=== PATIENT | female | born 1950 ===

== ENCOUNTER 2017-01-14 10:12 | Emergency (ER) | payer OTHER ==
[2017-01-14 10:35] VITALS: BP 131/78
--- NOTE | 2017-01-14 10:54 | UC ---
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 Has had similar episoded previously and states her doctor told it is something she has eaten but patient does not think that is the cause. " Sx started when car was in [place] 11/29/16, went to and was told rash was d/t lisinipril and statin but med was not changed. she was given benadryl and then went back and given prednisone taper and sx improved but returned when prednisone was completed 1 wk ago. She saw her PCP 1 wk ago who did not think it was due to meds and told to take OTC zyrtec w/o relief. felt that benadryl helped more than zyrtec. Rash worsened last night. hive like and itchy. Sx started with lip swelling. left lower lip is currently swollen. no swelling of tongue or throat, no wheezing, n/v/d. no voice change. no SOB or cough. Did not take any of her prescribed meds this AM. The only other BP med she has taken is enalapril. on HCTZ 25mgs. denies sulfa allergy - History of Current Complaint [facility] Time Seen by Provider: 01/14/17 10:14 Stated Complaint: RASH - Allergy/Home Medications Allergies/Adverse Reactions: Allergies Allergy/AdvReac Type Severity Reaction Status Date / Time No Known Allergies Allergy Verified 01/14/17 10:19 Home Medications: Home Medications Aspirin TAB* [Aspirin 325 MG TAB*] 325 mg PO DAILY 01/14/17 [History Confirmed 01/14/17] Atorvastatin* [Lipitor 40 MG*] 40 mg PO DAILY 01/14/17 [History Confirmed ] Hydrochlorothiazide TAB* [Hydrodiuril TAB*] 25 mg PO DAILY 01/14/17 [History Confirmed 01/14/17] Omeprazole CAP* [Prilosec CAP* 20 MG] 20 mg PO DAILY 01/14/17 [History Confirmed 01/14/17] metFORMIN* [Glucophage 500 MG TAB *] 500 mg PO DAILY 01/14/17 [History Confirmed 01/14/17] Review of Systems Constitutional: Negative Skin: Rash Eyes: Other - lip swelling ENT: Negative Respiratory: Negative Cardiovascular: Negative Gastrointestinal: Negative Genitourinary: Negative Motor: Negative Neurovascular: Negative Musculoskeletal: Negative Neurological: Negative Psychological: Negative All Other Systems Reviewed And Are Negative: Yes PMH/Surg Hx/FS Hx/Imm Hx Previously Healthy: Yes Endocrine History: Diabetes, Dyslipidemia Cardiovascular History: Hypertension GI/ History: Gastroesophageal Reflux - Surgical History Surgical History: None - Family History Known Family History: Positive: Cardiac Disease, Diabetes - Social History Alcohol Use: Occasionally Substance Use Type: None Smoking Status (MU): Never Smoked Tobacco Physical Exam Triage Information Reviewed: Yes Appearance: Well-Appearing, No Pain Distress, Well-Nourished - very pleasant, voice is nml. Vital Signs: Initial Vital Signs Temp 98.4 F 01/14/17 10:17 Pulse 87 01/14/17 10:17 Resp 14 01/14/17 10:17 BP 131/78 01/14/17 10:17 Pulse Ox 98 01/14/17 10:17 Vital Signs Reviewed: Yes Eye Exam: Normal ENT: Positive: Hearing grossly normal, Pharynx normal, TMs normal, Other: - mild -moderate left lower lip swelling. tongue and OP clear, voice nml. no stridor.. Negative: Pharyngeal erythema, Tonsillar swelling, Tonsillar exudate, Muffled/ hoarse voice Dental Exam: Normal Neck exam: Normal Neck: Positive: Supple, Nontender, No Lymphadenopathy Respiratory Exam: Normal Respiratory: Positive: Lungs clear, Normal breath sounds, No respiratory distress, No accessory muscle use. Negative: Crackles, Rhonchi, Stridor, Wheezing Cardiovascular Exam: Normal Cardiovascular: Positive: RRR, No Murmur, Pulses Normal Abdominal Exam: Normal Abdomen Description: Positive: Nontender, Soft Musculoskeletal Exam: Normal Neurological Exam: Normal Psychological Exam: Normal Skin: Positive: rashes - urticarial rash on b/l arms and low back and abdomen and chest, Other Re-Evaluation - Re-Evaluation First Eval Re-Evaluation Time: 11:35 Change: Improved - lip swelling and rash erythema have improved quite a bit. Course/Dx - Differential Diagnoses - Skin Complaint Differential Diagnoses: Allergic Reaction, Anaphylaxis, Angioedema, Drug Rash - Diagnoses Provider Diagnoses: Angioedema, allergic reaction, HTN Discharge - Discharge Plan Condition: Stable Disposition: HOME Prescriptions: Amlodipine Besylate [Norvasc 5 mg tab] 5 mg PO DAILY #30 tab Cetirizine HCl [Allergy 24Hour Indoor/Out] 10 mg PO DAILY #30 tab Epinephrine [Epipen 2-Burt] 0.3 mg IM ONCE #1 inj Methylprednisolone [Medrol Dosepak 4 MG*] 4 mg PO DAILY #1 burt Ranitidine TAB (NF) [Zantac TAB (NF)] 150 mg PO BID #60 tab Patient Education Materials: Angioedema (ED), General Allergic Reaction (ED) Referrals: Tristan Edwards MD [Primary Care Provider] - Additional Instructions: - Your allergic reaction is likely due to the lisinipril. -stop the lisinipril, continue HCTZ. -start amlodipine 5mgs daily. you will need electrolytes and kidney function checked after starting this. -you have been given benadryl 25mgs oral and prednisone 80mgs injection. -start medrol dose pack tomorrow -You should take cetirizine 10mgs daily and ranitidine 150mgs 2/day x at least 14 days. -Epipen prescription sent. if you use this, you should also take a 2 beandryl and call [phone]. -you should go to the ER via 911 if your symptoms worsen or you develop shortness of breath, wheezing, diarrhea, nausea or swelling of your tongue or throat. -follow up for the BP and allergic reaction with your PCP in 2 days. consideration to an time motion analyst could be given if the rash does not resolve or recurs. -watch for rising blood sugars b/c illness and prednisone. Go to ER if > 400
[2017-01-14] MEDS ORDERED: diPHENhydraMINE PO* 25 MG PO ONE (10:58)
[2017-01-14] MEDS ORDERED: methylPREDNISolone ACETATE 80* 80 MG/ML 1 ML VIAL IM ONE (10:58)
== END 2017-01-14 11:46 | disposition home or self-care (01) ==
LOC: UCCORT 10:12
DX: T78.3XXA Angioneurotic edema, initial encounter (principal); T78.40XA Allergy, unspecified, initial encounter; X58.XXXA Exposure to other specified factors, initial encounter; I10 Essential (primary) hypertension; E11.9 Type 2 diabetes mellitus without complications; Z79.84 Long term (current) use of oral hypoglycemic drugs; E78.5 Hyperlipidemia, unspecified; K21.9 Gastro-esophageal reflux disease without esophagitis
CPT/HCPCS: 96372; 99202; A9270-GY; G0463; J1040